=== PATIENT | male | born 1995 | race Caucasian/White ===

== ENCOUNTER 2018-10-28 06:54 | Inpatient (IN) ==
[2018-10-28] MEDS ORDERED: GI COCKTAIL ED USE PO ONE (07:09)
[2018-10-28] MEDS ORDERED: ONDANSETRON INJ 2 MG/ML 2 ML VIAL IV STA (07:09)
[2018-10-28] MEDS ORDERED: KETOROLAC 30 MG/ML VIAL IV STA (07:09)
[2018-10-28] MEDS ORDERED: SODIUM CHLORIDE 0.9% 500 ML IV SCH (07:15)
--- NOTE | 2018-10-28 07:17 | Emergency Department Note ---
Entered by Julia Elkins acting as a scribe for History of Present Illness General Chief complaint: Abdominal Pain Stated complaint: ABD PAIN Time Seen by Provider: 10/28/18 06:59 Source: patient History of Present Illness Onset (ago): day(s) 4 Location: abdomen (epigastric) Radiation: non-radiation (back) Pain Consistency: + constant Maximum Pain Intensity: 4 Quality: + other (knot) Exacerbated By: + movement (stretching) and + other (lying flat) Associated symptoms: + denies other symptoms (vomiting, diarrhea, constipation, or chest pain) and + other (nausea) The patient is a 23 year old male that is presenting to the Emergency Room with complaints of constant epigastric pain that started 4 days ago. The patient reports that he woke up and noted the pain at that time. He describes the pain as knots. He notes some associated nausea. He denies any vomiting, diarrhea, constipation, or chest pain. He states that the pain worsens when he lays in certain positions or when he stretches upward. The patient reports that the pain radiates downward but denies that it radiates to his back. He denies smoking cigarettes or drinking alcohol. He denies any past abdominal surgeries. He notes that he has not had similar episodes in the past. He denies any significant past medical history. 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 and A total of 10 systems reviewed and were otherwise negative Physical Exam Vital Signs Vital Signs - 24 hr 10/28/18 06:58 10/28/18 08:44 Temperature 37.1 C Temperature Source Oral Sepsis Recent Fever Within 48 Hours No Sepsis New/Unexplained Change in Mental Status No Sepsis Action Taken by Nursing No Action Required Pulse Rate 73 Pulse Rate [Finger] 76 Respiratory Rate 18 16 Respiratory Depth Normal Blood Pressure 144/86 H Blood Pressure [Right Arm] 135/70 Blood Pressure Mean 105 Blood Pressure Mean [Right Arm] 91 Pulse Oximetry 99 97 Oxygen Delivery Method Room Air Room Air CONSTITUTIONAL/VITAL SIGNS: Reviewed / noted above. GENERAL: Non-toxic in appearance. INTEGUMENTARY: Warm, dry, and [place]. HEAD: Normocephalic. EYES: without scleral icterus or trauma. ENT/OROPHARYNX: clear and moist. LYMPHADENOPATHY/NECK: Is supple without lymphadenopathy or meningismus. RESPIRATORY: Lungs clear and equal. CARDIOVASCULAR: Regular rate and rhythm. GI/ABDOMEN: Soft. Tenderness in the epigastric area. No organomegaly or pulsatile mass. No rebound or guarding. Normal bowel sounds. EXTREMITIES: Warm and well perfused. BACK: No CVA tenderness. NEUROLOGICAL: Intact without focal deficits. PSYCHIATRIC: normal affect. MUSCULOSKELETAL: Normally developed with good muscle tone. Course 0705:The patient was evaluated in room A03. A complete history and physical examination was performed. 0904: I updated the patient on his current lab and imaging results. 0910: I discussed the patient's case with Dr. Carias, [facility], who will evaluate the patient for further management and care. 0937: Upon reevaluation, the patient is resting comfortably. I discussed laboratory and radiographic results with the patient. He verbalized agreement of the treatment plan. The patient will be evaluated for further management and care. Consultations Consultation #1: I discussed the patient's case with Dr. Carias, [facility], who will evaluate the patient for further management and care. Time: 09:10 Administered Medications Ioversol (Optiray 320 100ml) 95 ml IV ONCE PRN PRN Reason: Interaction Checking Stop: 11/01/18 08:32 Last Admin: 10/28/18 08:33 Dose: 95 ml Documented by: [id number] Discontinued Medications Al Hydrox/Mg Hydrox/Simethicone () 1 dose PO ONE ONE Stop: 10/28/18 07:10 Last Admin: 10/28/18 07:36 Dose: 1 dose Documented by: [id number] Sodium Chloride (Nss) 500 mls @ 999 mls/hr IV .Q31M SHARLA Stop: 10/28/18 07:45 Last Infusion: 10/28/18 08:44 Dose: 0 mls/hr Documented by: [id number] Admin: 10/28/18 07:36 Dose: 999 mls/hr Documented by: [id number] Ketorolac Tromethamine (Toradol) 30 mg IV NOW STA Stop: 10/28/18 07:10 Last Admin: 10/28/18 07:36 Dose: 30 mg Documented by: [id number] Ondansetron HCl (Zofran) 4 mg IV NOW STA Stop: 10/28/18 07:10 Last Admin: 10/28/18 07:36 Dose: 4 mg Documented by: [id number] Medical Decision Making Differential Diagnosis Differential considered: pancreatitis, hepatitis, or acute cholecystitis, AAA, UTI, pyelonephritis, kidney stones, appendicitis, diverticulitis, shingles, bowel obstruction mesenteric ischemia, intussusception,hernia, testicular torsion. Medical Records Attestation: I reviewed the patient's medical records. Home Medications Current Medication List: was personally reviewed by me Laboratory Data Attestation: I reviewed the patient's lab results. Result diagrams: 10/28/18 07:17 10/28/18 07:17 Lab Results 10/28/18 10/28/18 10/28/18 Range/Units 07:17 07:17 07:18 WBC 11.36 H (4.8-10.8) K/uL RBC 5.47 (4.7-6.1) M/uL Hgb 16.6 (14.0-18.0) g/dL Hct 44.3 (42-52) % MCV 81.0 (80-100) fL MCH 30.3 (25-34) pg MCHC 37.5 H (32-36) g/dL RDW Std Deviation 39.0 (36.4-46.3) fL RDW Coeff of [place] 13.1 (11.5-14.5) % Plt Count 172 (130-400) K/uL MPV 12.1 H (7.4-10.4) fL Immature Gran % (Auto) 0.2 % Neut % (Auto) 75.0 % Lymph % (Auto) 16.4 % [place] % (Auto) 7.0 % Eos % (Auto) 1.1 % Baso % (Auto) 0.3 % Immature Gran # (Auto) 0.02 (0.00-0.02) K/uL Neut # (Auto) 8.53 H (1.4-6.5) K/uL Lymph # (Auto) 1.86 (1.2-3.4) K/uL [place] # (Auto) 0.79 H (0.11-0.59) K/uL Eos # (Auto) 0.13 (0-0.5) K/uL Baso # (Auto) 0.03 (0-0.2) K/uL Sodium 137 (136-145) mmol/L Potassium 4.3 (3.5-5.1) mmol/L Chloride 105 (98-107) mmol/L Carbon Dioxide 27 (21-32) mmol/L Anion Gap 5.0 (3-11) BUN 17 (7-18) mg/dl Creatinine 1.29 (0.6-1.4) mg/dl Est Cr Clr Drug Dosing 103.4 ml/min Est GFR ( Amer) 88.7 Est GFR (Non-Af Amer) 76.5 BUN/Creatinine Ratio 13.0 (10-20) Glucose 100 H (70-99) mg/dl Calcium 9.3 (8.5-10.1) mg/dl Total Bilirubin 0.9 (0.2-1) mg/dl AST 20 (15-37) U/L ALT 25 (12-78) U/L Alkaline Phosphatase 107 (45-117) U/L Total Protein 7.5 (6.4-8.2) gm/dl Albumin 4.3 (3.4-5.0) gm/dl Globulin 3.2 (2.5-4.0) gm/dl Albumin/Globulin Ratio 1.4 (0.9-2) Lipase 13476 H (73-393) U/L Urine Color Dark Yellow Urine Appearance Clear (Clear) Urine pH 6.0 (4.5-7.5) Ur Specific [place] 1.036 H (1.000-1.030) Urine Protein 1+ H (Negative) Urine Glucose (UA) Negative (Negative) Urine Ketones 1+ H (Negative) Urine Blood Negative (Negative) Urine Nitrite Negative (Negative) Urine Bilirubin Negative (Negative) Urine Urobilinogen Negative (Negative) Ur Leukocyte Esterase Negative (Negative) Urine RBC 0-4 (0-4) /hpf Urine WBC 0-5 (0-5) /hpf Ur Epithelial Cells 0-5 (0-5) /lpf Urine Bacteria Negative (Negative) Urine Mucus Present A (None Prsent) Imaging Data Radiologist's Impression: Radiology results as stated below per my review and the radiologist's interpretation: ABDOMEN AND PELVIS CT WITH IV CONTRAST CT DOSE: 531.07 mGy.cm HISTORY: epig abd pain TECHNIQUE: Multiaxial CT images of the abdomen and pelvis were performed following the use of intravenous contrast. A dose lowering technique was utilized adhering to the principles of ALARA. COMPARISON STUDY: None. FINDINGS: Trace left pleural fluid. The liver, spleen, gallbladder, kidneys, and adrenal glands are unremarkable. Mild peripancreatic inflammatory change surrounding the pancreatic head. This is consistent with acute pancreatitis. Normal caliber common bile duct. No pancreatic necrosis. No retroperitoneal lymphadenopathy. The main portal vein is patent. No hydronephrosis. No bowel wall thickening or obstruction. No retroperitoneal lymphadenopathy. The bladder is not well-distended but appears unremarkable. No bowel wall thickening or obstruction. Left retroaortic renal vein. No suspicious lytic or blastic osseous lesions. IMPRESSION: Mild peripancreatic inflammatory change surrounding the pancreatic head consistent with acute pancreatitis. Trace left pleural effusion. Electronically signed by: Rudi Pack M.D. 10/28/2018 9:59 AM Blood Pressure Blood Pressure Findings: Elevated blood pressure Blood Pressure Disposition: Referred to patients primary care provider MDM Narrative This is a 23-year-old male who presents to the ED with a chief complaint of epigastric abdominal pain that started on Tuesday, 3 days ago. The patient reports that it feels like a knot in the epigastric area with associated nausea. He denies any radiation into the back but states it radiates down inferiorly a little. He denies any past medical history. Denies drinking alcohol or any past surgical history. His physical exam reveals some tenderness to palpation of the epigastric area. His exam was otherwise unremarkable. The bowel sounds were normal. CBC and chemistry panel was unremarkable. Lipase was 29,474. CT scan reveals mild pancreatitis of the pancreatic head. Patient was given IV fluids, IV Zofran, IV Toradol and a GI cocktail. He was feeling better. Because of his abnormalities, he will be seen by the hospitalist for further inpatient evaluation and care. Impression & Plan Acute pancreatitis Discharge Plan Visit Data Chief Complaint: Abdominal Pain Stated Complaint: ABD PAIN ED Provider: Keo Wilson Discharge Problem: Acute pancreatitis Patient Disposition: Being Evaluated by Hospitalist Discharge Instructions Interventions: ED Discharge Assessment Last Done: 10/28/18 09:58 Discharge Problem: Acute pancreatitis Qualifiers: Pancreatitis type: unspecified pancreatitis type Acute pancreatitis complication: unspecified Qualified Code(s): K85.90 - Acute pancreatitis without necrosis or infection, unspecified The scribe's documentation has been prepared under my direction and personally r eviewed by me in its entirety. I confirm that the note above accurately reflects all work, treatment, procedures, and medical decision making performed by me.
[2018-10-28 07:33] LABS: Basophils # (auto) 0.03 K/uL (0-0.2); Basophils % (auto) 0.3 %; Eosinophils # (auto) 0.13 K/uL (0-0.5); Eosinophils % (auto) 1.1 %; Hematocrit (blood only) 44.3 % (42-52); Hemoglobin 16.6 g/dL (14.0-18.0); Immature Granulocytes # (auto) 0.02 K/uL (0.00-0.02); Immature Granulocytes % (auto) 0.2 %; Lymphocytes # (auto) 1.86 K/uL (1.2-3.4); Lymphocytes % (auto) 16.4 %; Mean Corpuscular Hgb Conc 37.5 g/dL (32-36); Mean Platelet Volume 12.1 fL (7.4-10.4); Monocytes # (auto) 0.79 K/uL (0.11-0.59); Neutrophils # (auto) 8.53 K/uL (1.4-6.5); Platelet Count 172 K/uL (130-400); RDW Coefficient of Variation 13.1 % (11.5-14.5); Red Blood Count 5.47 M/uL (4.7-6.1); White Blood Count 11.36 K/uL (4.8-10.8)
[2018-10-28 07:36] LABS: Appearance Urine Clear (Clear); Blood Urine Negative (Negative); Color Urine Dark Yellow; Glucose Urine UA Negative (Negative); Ketones Urine 1+ (Negative); Leukocyte Esterase Urine Negative (Negative); Nitrite Urine Negative (Negative); Protein Urine 1+ (Negative); Specific Gravity Urine 1.036 (1.000-1.030); Urobilinogen Urine Negative (Negative)
[2018-10-28 07:38] LABS: Bilirubin Urine Negative (Negative); Ictotest Urine Negative (Negative)
[2018-10-28 07:47] LABS: Mucus Urine Present (None Prsent)
[2018-10-28 07:48] LABS: Epithelial Cell Urine 0-5 /lpf (0-5); RBC Urine 0-4 /hpf (0-4); WBC Urine 0-5 /hpf (0-5)
[2018-10-28 07:49] LABS: Bacteria Urine Negative (Negative)
[2018-10-28 08:02] LABS: Albumin Level 4.3 gm/dl (3.4-5.0); Calcium 9.3 mg/dl (8.5-10.1); Creatinine Clr Calc Pharmacy 103.4 ml/min; Est GFR (African American) 88.7; Est GFR (Non-African American) 76.5; Potassium 4.3 mmol/L (3.5-5.1)
[2018-10-28 08:15] LABS: Albumin Globulin Ratio 1.4 (0.9-2); Bilirubin,Total 0.9 mg/dl (0.2-1); Globulin 3.2 gm/dl (2.5-4.0); Total Protein 7.5 gm/dl (6.4-8.2)
[2018-10-28] MEDS ORDERED: IOVERSOL 100ml IV PRN (08:33)
--- NOTE | 2018-10-28 10:00 | CT Scan Report ---
ABDOMEN AND PELVIS CT WITH IV CONTRAST CT DOSE: 531.07 mGy.cm HISTORY: epig abd pain TECHNIQUE: Multiaxial CT images of the abdomen and pelvis were performed following the use of intrave nous contrast. A dose lowering technique was utilized adhering to the principles of ALARA. COMPARISON STUDY: None. FINDINGS: Trace left pleural fluid. The liver, spleen, gallbladder, kidneys, and adrenal glands are u nremarkable. Mild peripancreatic inflammatory change surrounding the pancreatic head. This is consist ent with acute pancreatitis. Normal caliber common bile duct. No pancreatic necrosis. No retroperiton eal lymphadenopathy. The main portal vein is patent. No hydronephrosis. No bowel wall thickening or o bstruction. No retroperitoneal lymphadenopathy. The bladder is not well-distended but appears unremar kable. No bowel wall thickening or obstruction. Left retroaortic renal vein. No suspicious lytic or b lastic osseous lesions. IMPRESSION: Mild peripancreatic inflammatory change surrounding the pancreatic head consistent with acute pancrea titis. Trace left pleural effusion. Electronically signed by: Rudi Pack M.D. 10/28/2018 9:59 AM
[2018-10-28] MEDS ORDERED: HYDROmorphone INJ 1 MG/ML SYRINGE IV PRN (10:09)
[2018-10-28] MEDS ORDERED: ONDANSETRON INJ 2 MG/ML 2 ML VIAL IV PRN (10:09)
[2018-10-28] MEDS: SODIUM CHLORIDE 0.9% 1000ML 1,000 ML IV SCH ×3 (10:30→20:59)
[2018-10-28 10:33] LABS: Chol HDL Ratio 3; Cholesterol 148 mg/dl (0-200); HDL Cholesterol 44 mg/dl; LDL Cholesterol Calculated 81 mg/dl; Triglycerides 113 mg/dl (0-150); VLDL Cholesterol 23 mg/dl
--- NOTE | 2018-10-28 11:17 | Ultrasound Report ---
ABDOMINAL ULTRASOUND, RIGHT UPPER QUADRANT HISTORY: pancreatitis, evaluate GB and CBD and pancreas. COMPARISON: Abdomen and pelvis CT 10/28/2018. FINDINGS: Pancreas: Obscured by overlying bowel gas. Liver: Unremarkable. Gallbladder: No gallbladder wall thickening. No gallstones. CBD: 5 mm. Right kidney: No hydronephrosis. IMPRESSION: 1. Normal gallbladder and common bile duct. No stones identified. 2. The pancreas is obscured by overlying bowel gas. Electronically signed by: Rudi Pack M.D. 10/28/2018 11:15 AM
--- NOTE | 2018-10-28 11:24 | History & Physical Report ---
Date of Service October 28, 2018 Assessment & Plan (1) Acute pancreatitis: diagnosed based on lipase 29k and CT findings of pancreatitis no gall stones on US, LFT normal patient denies alcohol use triglycerides 119 likely idiopathic at this point strict NPO today NSS at 200cc/hr Dilaudid IV for pain control reassess pain and appetite tomorrow likely d/c in 48 hours History of Present Illness Chief Complaint: My abdomen hurts Primary Care Provider: NO PCP 23 yo male with no medical history, presents with 4 days of worsening epigastric pain. He said he has never had pain like this before. The pain was dull at first but has become more sharp, located in epigastric area, does not radiate to the back or anywhere else in the abdomen. Had some nausea but no vomiting. Moved bowels last night, normal caliber. No blood seen in stools. No fever or chills. Nothing has helped the pain. His appetite has been decreased, noticed that eating or drinking makes the pain worse so he has avoided PO intake. In the ED vitals were stable. WBC slightly high at 11k. Lipase markedly elevated at 29k, LFT all normal, Cr normal. CT abdomen/pelvis showed pancreatitis of the head of the pancreas, no other findings. The patient denies regular alcohol use and denies any binge alcohol episodes. He takes no medications. No history of gall stones. His parents have no medical history. His grand mother has heart disease. 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 Beliefs That Will Affect Care: None marital status: Single Current Living Situation: Significant Other current occupational status: unemployed Feels Safe at Home: Yes Safety Concerns: Feels Safe At This Time Smoking Status: Never smoker Hx Alcohol Use: No Hx Substance Use: No Review of Systems Review of Systems: All systems reviewed & are unremarkable except as noted in HPI & below Respiratory: no cough and no dyspnea Cardiovascular: no chest pain Gastrointestinal: + abdominal pain and + nausea; no vomiting, no constipation, no diarrhea/loose stools and no blood in stools Physical Exam Constitutional: WD/WN, vitals as above Eyes: PERRL, conjunctivae normal, anicteric sclerae ENMT: external ear and nose normal, oropharynx normal Neck: trachea midline, no thyromegaly Respiratory: normal respiratory effort, lungs clear to auscultation Cardiovascular: RRR, no murmur, no edema Gastrointestinal (Abdomen): Inspection/Auscultation: abdomen normal to inspection and normal bowel sounds; abdomen not distended Percussion/Palpation: + abdomen tender (epigastric) and abdomen soft; no guarding, abdomen not rigid and no hepatosplenomegaly Musculoskeletal: no cyanosis or clubbing, extremities motor strength 5/5 Skin: no rashes, warm and dry Neurologic: patellar DTR's 2+ bilat, sensation intact and PERRL, EOMI, accommodation nl, no face palsy, no dysarthria Psychiatric: A+Ox3, euthymic affect Lymphatic: no cervical or axillary lymphadenopathy Results & Data Vital Signs (Past 12 Hours) Vital Signs Temp Pulse Pulse Resp BP BP Pulse Ox 10/28/18 10:05 36.6 C 64 18 145/77 H 100 10/28/18 09:47 65 16 137/76 98 10/28/18 08:44 76 16 135/70 97 10/28/18 06:58 37.1 C 73 18 144/86 H 99 Laboratory Results Laboratory Results - last 24 hr 10/28/18 10/28/18 10/28/18 07:17 07:17 07:17 WBC 11.36 H RBC 5.47 Hgb 16.6 Hct 44.3 MCV 81.0 MCH 30.3 MCHC 37.5 H RDW Std Deviation 39.0 RDW Coeff of [place] 13.1 Plt Count 172 MPV 12.1 H Immature Gran % (Auto) 0.2 Neut % (Auto) 75.0 Lymph % (Auto) 16.4 [place] % (Auto) 7.0 Eos % (Auto) 1.1 Baso % (Auto) 0.3 Immature Gran # (Auto) 0.02 Neut # (Auto) 8.53 H Lymph # (Auto) 1.86 [place] # (Auto) 0.79 H Eos # (Auto) 0.13 Baso # (Auto) 0.03 Sodium 137 Potassium 4.3 Chloride 105 Carbon Dioxide 27 Anion Gap 5.0 BUN 17 Creatinine 1.29 Est Cr Clr Drug Dosing 103.4 Est GFR ( Amer) 88.7 Est GFR (Non-Af Amer) 76.5 BUN/Creatinine Ratio 13.0 Glucose 100 H Calcium 9.3 Total Bilirubin 0.9 AST 20 ALT 25 Alkaline Phosphatase 107 Total Protein 7.5 Albumin 4.3 Globulin 3.2 Albumin/Globulin Ratio 1.4 Triglycerides 113 Cholesterol 148 LDL Cholesterol, Calc 81 VLDL Cholesterol, Calc 23 HDL Cholesterol 44 Cholesterol/HDL Ratio 3 Lipase 17624 H Urine Color Urine Appearance Urine pH Ur Specific [place] Urine Protein Urine Glucose (UA) Urine Ketones Urine Blood Urine Nitrite Urine Bilirubin Urine Urobilinogen Ur Leukocyte Esterase Urine RBC Urine WBC Ur Epithelial Cells Urine Bacteria Urine Mucus 10/28/18 07:18 WBC RBC Hgb Hct MCV MCH MCHC RDW Std Deviation RDW Coeff of [place] Plt Count MPV Immature Gran % (Auto) Neut % (Auto) Lymph % (Auto) [place] % (Auto) Eos % (Auto) Baso % (Auto) Immature Gran # (Auto) Neut # (Auto) Lymph # (Auto) [place] # (Auto) Eos # (Auto) Baso # (Auto) Sodium Potassium Chloride Carbon Dioxide Anion Gap BUN Creatinine Est Cr Clr Drug Dosing Est GFR ( Amer) Est GFR (Non-Af Amer) BUN/Creatinine Ratio Glucose Calcium Total Bilirubin AST ALT Alkaline Phosphatase Total Protein Albumin Globulin Albumin/Globulin Ratio Triglycerides Cholesterol LDL Cholesterol, Calc VLDL Cholesterol, Calc HDL Cholesterol Cholesterol/HDL Ratio Lipase Urine Color Dark Yellow Urine Appearance Clear Urine pH 6.0 Ur Specific [place] 1.036 H Urine Protein 1+ H Urine Glucose (UA) Negative Urine Ketones 1+ H Urine Blood Negative Urine Nitrite Negative Urine Bilirubin Negative Urine Urobilinogen Negative Ur Leukocyte Esterase Negative Urine RBC 0-4 Urine WBC 0-5 Ur Epithelial Cells 0-5 Urine Bacteria Negative Urine Mucus Present A Diagnostic Findings ABDOMINAL ULTRASOUND, RIGHT UPPER QUADRANT IMPRESSION: 1. Normal gallbladder and common bile duct. No stones identified. 2. The pancreas is obscured by overlying bowel gas. CT ABDOMEN/PELVIS IMPRESSION: Mild peripancreatic inflammatory change surrounding the pancreatic head consistent with acute pancreatitis. Trace left pleural effusion. Code Status & VTE Plan Code Status FULL CODE VTE Prophylaxis Plan VTE Prophylaxis will be ordered: No Reason for no VTE drug order: Treatment not indicated Reason for no VTE mechanical prophylaxis: Refusal of treatmnt by pt (1) Acute pancreatitis Acute pancreatitis complication: unspecified Pancreatitis type: unspecified pancreatitis type Qualified Code(s): K85.90 - Acute pancreatitis without necrosis or infection, unspecified
[2018-10-28] MEDS ORDERED: Nursing to Pharmacy Communication ONE (17:53)
[2018-10-29] MEDS: SODIUM CHLORIDE 0.9% 1000ML 1,000 ML IV SCH ×4 (01:55→20:13)
[2018-10-29 06:58] LABS: Basophils # (auto) 0.03 K/uL (0-0.2); Basophils % (auto) 0.4 %; Eosinophils # (auto) 0.11 K/uL (0-0.5); Eosinophils % (auto) 1.3 %; Hematocrit (blood only) 42.1 % (42-52); Hemoglobin 14.9 g/dL (14.0-18.0); Immature Granulocytes # (auto) 0.01 K/uL (0.00-0.02); Immature Granulocytes % (auto) 0.1 %; Lymphocytes % (auto) 22.2 %; Mean Corpuscular Hgb Conc 35.4 g/dL (32-36); Mean Corpuscular Volume 82.7 fL (80-100); Mean Platelet Volume 12.5 fL (7.4-10.4); Monocytes # (auto) 0.71 K/uL (0.11-0.59); Monocytes % (auto) 8.3 %; Neutrophils % (auto) 67.7 %; Platelet Count 142 K/uL (130-400); RDW Standard Deviation 39.6 fL (36.4-46.3); Red Blood Count 5.09 M/uL (4.7-6.1); White Blood Count 8.56 K/uL (4.8-10.8)
[2018-10-29 07:30] LABS: Albumin Level 3.5 gm/dl (3.4-5.0); BUN Creatinine Ratio 12.6 (10-20); Calcium 8.5 mg/dl (8.5-10.1); Creatinine Clr Calc Pharmacy 124.6 ml/min; Est GFR (African American) 111.2
[2018-10-29 07:33] LABS: Albumin Globulin Ratio 1.2 (0.9-2); Bilirubin,Total 1.2 mg/dl (0.2-1); Total Protein 6.5 gm/dl (6.4-8.2)
--- NOTE | 2018-10-29 13:24 | Hospitalist Progress Note ---
Date of Service October 29, 2018 Assessment & Plan (1) Acute pancreatitis: diagnosed based on lipase 29k and CT findings of pancreatitis no gall stones on US, LFT normal patient denies alcohol use triglycerides 119 would consider this to be idiopathic markedly improved on 10/29, minimal pain, patient now with appetite will start full liquids for lunch, if tolerates then low residue diet at dinner decrease fluids to 100cc/hr lipase down to 2000 repeat labs in AM if tolerating diet and minimal pain then d/c to home follow up with PCP Subjective patient feeling a lot better, pain nearly gone he is hungry this morning no nausea, no fever, no dyspnea reviewed labs, lipase down to 2000, LFT normal will decrease fluids, start diet told patient he can likely go home tomorrow Review of Systems Review of Systems: All systems reviewed & are unremarkable except as noted in HPI & below Gastrointestinal: + abdominal pain (mild, not as bad as yesterday); no nausea, no vomiting, no constipation and no diarrhea/loose stools Physical Exam Constitutional: WD/WN, vitals as above Eyes: PERRL, conjunctivae normal, anicteric sclerae ENMT: external ear and nose normal, oropharynx normal Neck: trachea midline, no thyromegaly Respiratory: normal respiratory effort, lungs clear to auscultation Cardiovascular: RRR, no murmur, no edema Gastrointestinal (Abdomen): Inspection/Auscultation: abdomen normal to inspection and normal bowel sounds; abdomen not distended Percussion/Palpation: + abdomen tender (epigastric, minimal tenderness) and abdomen soft; no guarding, abdomen not rigid and no hepatosplenomegaly Musculoskeletal: no cyanosis or clubbing, extremities motor strength 5/5 Skin: no rashes, warm and dry Neurologic: patellar DTR's 2+ bilat, sensation intact and PERRL, EOMI, accommodation nl, no face palsy, no dysarthria Psychiatric: A+Ox3, euthymic affect Lymphatic: no cervical or axillary lymphadenopathy Results & Data Vital Signs (Past 12 Hours) Vital Signs Temp Pulse Resp BP Pulse Ox 10/29/18 07:00 36.9 C 76 18 120/72 98 Laboratory Results Laboratory Results - last 24 hr 10/29/18 10/29/18 06:36 06:36 WBC 8.56 RBC 5.09 Hgb 14.9 Hct 42.1 MCV 82.7 MCH 29.3 MCHC 35.4 RDW Std Deviation 39.6 RDW Coeff of [place] 13.0 Plt Count 142 MPV 12.5 H Immature Gran % (Auto) 0.1 Neut % (Auto) 67.7 Lymph % (Auto) 22.2 [place] % (Auto) 8.3 Eos % (Auto) 1.3 Baso % (Auto) 0.4 Immature Gran # (Auto) 0.01 Neut # (Auto) 5.80 Lymph # (Auto) 1.90 [place] # (Auto) 0.71 H Eos # (Auto) 0.11 Baso # (Auto) 0.03 Sodium 141 Potassium 4.0 Chloride 111 H Carbon Dioxide 25 Anion Gap 6.0 BUN 14 Creatinine 1.07 Est Cr Clr Drug Dosing 124.6 Est GFR ( Amer) 111.2 Est GFR (Non-Af Amer) 96.0 BUN/Creatinine Ratio 12.6 Glucose 74 Calcium 8.5 Total Bilirubin 1.2 H AST 17 ALT 20 Alkaline Phosphatase 89 Total Protein 6.5 Albumin 3.5 Globulin 3.0 Albumin/Globulin Ratio 1.2 Lipase 2375 H Medications Administered Current Inpatient Medications Hydromorphone HCl (Dilaudid) 1 mg IV Q4H PRN PRN Reason: Pain Stop: 11/11/18 10:08 Last Admin: 10/28/18 16:01 Dose: 1 mg Documented by: Sodium Chloride (Nss 1000ml) 1,000 mls @ 100 mls/hr IV .Q10H SHARLA Stop: 11/27/18 20:59 Last Admin: 10/29/18 11:40 Dose: 100 mls/hr Documented by: Ioversol (Optiray 320 100ml) 95 ml IV ONCE PRN PRN Reason: Interaction Checking Stop: 11/01/18 08:32 Last Admin: 10/28/18 08:33 Dose: 95 ml Documented by: Ondansetron HCl (Zofran) 4 mg IV Q6H PRN PRN Reason: Nausea Stop: 11/27/18 10:08 (1) Acute pancreatitis Acute pancreatitis complication: unspecified Pancreatitis type: unspecified pancreatitis type Qualified Code(s): K85.90 - Acute pancreatitis without necrosis or infection, unspecified
[2018-10-30] MEDS: SODIUM CHLORIDE 0.9% 1000ML 1,000 ML IV SCH (05:02)
--- NOTE | 2018-10-30 12:22 | Discharge Summary ---
Date of Service October 30, 2018 Admission HPI Per Admitting Provider 23 yo male with no medical history, presents with 4 days of worsening epigastric pain. He said he has never had pain like this before. The pain was dull at first but has become more sharp, located in epigastric area, does not radiate to the back or anywhere else in the abdomen. Had some nausea but no vomiting. Moved bowels last night, normal caliber. No blood seen in stools. No fever or chills. Nothing has helped the pain. His appetite has been decreased, noticed that eating or drinking makes the pain worse so he has avoided PO intake. In the ED vitals were stable. WBC slightly high at 11k. Lipase markedly elevated at 29k, LFT all normal, Cr normal. CT abdomen/pelvis showed pancreatitis of the head of the pancreas, no other findings. The patient denies regular alcohol use and denies any binge alcohol episodes. He takes no medications. No history of gall stones. His parents have no medical history. His grand mother has heart disease. 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 Principal Diagnosis Acute pancreatitis Discharge Exam Constitutional WD/WN, vitals as above Eyes PERRL, conjunctivae normal, anicteric sclerae ENMT external ear and nose normal, oropharynx normal Neck trachea midline, no thyromegaly Respiratory normal respiratory effort, lungs clear to auscultation Cardiovascular RRR, no murmur, no edema Gastrointestinal (Abdomen) normal bowel sounds, soft, nontender, no hepatosplenomegaly Musculoskeletal Extremities: extremities normal to inspection; no cyanosis and no clubbing Skin no rashes, warm and dry Neurologic moves all extremities and awake; no focal motor deficits Psychiatric A+Ox3, euthymic affect Discharge Data Allergies Allergy/AdvReac Type Severity Reaction Status Date / Time EYZOLE Allergy Intermediate HIVES Uncoded 04/21/09 05:08 Consultations None Ordered Studies 10/28/18 07:09 CT abd pelvis IV con only Stat 10/28/18 10:09 US abdomen limited Stat Hospital Course (1) Acute pancreatitis: diagnosed based on lipase 29k and CT findings of pancreatitis. Lipase down to 2000 by the next day no gall stones on US, LFT normal patient denies alcohol use triglycerides 119 would consider this to be idiopathic It is possible he could have pancreas divisum not well visualized on CT, consider MRI pancreas as outpt if has recurrence. Could be autoimmune. No workup for this initiated at this time but would if has recurrence Markedly improved on day of discharge, tolerating low fat diet, has no pain. Treated with IVFs and pain meds Stable for discharge. Strongly encouraged f/u and to get established with a PCP Total Time Total Time Spent Total Time Spent (In Minutes): >30 min Total Time Includes: Examination of the Patient, Discharge Planning and Medication Reconciliation Discharge Plan Discharge Items Patient Disposition: Home - Self-Care Reason For Visit: acute pancreatitis Discharge Diagnosis: Acute pancreatitis Condition: Good Discharge Goals: Decrease discomfort, Diagnostic testing, Improve disease control, Learn about illness and Therapeutic intervention Activity: Resume your previous activity Lifting: Gradually increase as tolerated Bathing: No limitations Exercise/Sports: Gradually increase as tolerated Driving/Machine Use: No limitations Non-emergency contact: Primary Care Provider Call non-emergency contact if: you have any medication questions, your symptoms worsen, your pain is not controlled, your pain is worsening, your pain is unusual for you, your pain is concerning for you and your temperature is above 100.5 Follow-up/Referrals: PCP,NO [Primary Care Provider] - Diet: Low Fat Addtl Provider Instructions: You were admitted with acute pancreatitis which is inflammation of the pancreas. It is unclear what the cause of your pancreatitis is but it is important to follow a low fat diet and avoid alcohol use. Please follow up with a primary care physician within 1-2 weeks. If you have return of your abdominal pain, please return to the hospital. Prescriptions: No Action No Known Home Medications RF: 0 Stand-Alone Forms: [facility], Later [facility], Work/School Release (Inpt) Discharge Orders: Discharge Order (Routine); Ordered 10/30/18 Ordered By: Jacqueline Henao Admission Data Admit Date/Time: 10/28/18 09:32 Attending Provider: Jacqueline Henao Admit Provider: Johann Carias Primary Care Provider: PCP,NO Other Providers: Johann Carias Service: Medical Other Pending Studies at Discharge: No
== END 2018-10-30 12:35 | disposition home or self-care (01) | DRG 440 ==
LOC: ED 06:54 → 4W 09:32 → SUATTDRO 09:32 → 4W 09:58
DX: K85.90 Acute pancreatitis without necrosis or infection, unspecified

== ENCOUNTER 2023-04-20 18:14 | Observation (INO) ==
--- NOTE | 2023-04-20 18:34 | ED Triage Note ---
Date of Service April 20, 2023 History of Present Illness This patient was briefly evaluated while in triage. An abbreviated physical exam was performed. This patient is a 27-year-old Male who presents to the ED for evaluation of anorexia, pain after eating, upper abdominal pain x 6 days hx of pancreatitis and feels the same diarrhea Physical Exam GENERAL: NAD CARDIOVASCULAR: RRR RESPIRATORY: CTA ABDOMEN: BS x 4. TTP in mid upper abdomen. Initial orders for labs and / or imaging were placed and patient was placed in the waiting area until a bed is available. Please see further documentation for the full ED course. MDM / Impression Impression Impression: Pancreatitis Impression: Pancreatitis Qualifiers: Chronicity: acute Pancreatitis type: unspecified pancreatitis type Acute pancreatitis complication: unspecified Qualified Code(s): K85.90 - Acute pancreatitis without necrosis or infection, unspecified
[2023-04-20] MEDS ORDERED: SODIUM CHLORIDE 0.9% 1,000 ML IV SCH ×2 (18:36→22:15)
[2023-04-20 19:20] LABS: Basophils # (auto) 0.06 K/uL (0.00-0.20); Basophils % (auto) 0.5 %; Eosinophils # (auto) 0.22 K/uL (0.00-0.50); Eosinophils % (auto) 1.8 %; Hemoglobin 14.9 g/dl (14.0-18.0); Immature Granulocytes # (auto) 0.07 K/uL (0.01-0.20); Immature Granulocytes % (auto) 0.6 %; Lymphocytes # (auto) 2.16 K/uL (1.20-3.40); Lymphocytes % (auto) 17.9 %; Mean Corpuscular Hemoglobin 28.9 pg (25.0-34.0); Mean Corpuscular Hgb Conc 36.3 g/dL (32.0-36.0); Mean Corpuscular Volume 79.6 fL (80.0-100.0); Mean Platelet Volume 11.8 fL (9.4-12.4); Monocytes # (auto) 0.81 K/uL (0.11-0.59); Monocytes % (auto) 6.7 %; Neutrophils # (auto) 8.77 K/uL (1.40-6.50); Neutrophils % (auto) 72.5 %; Platelet Count 257 K/uL (130-400); RDW Coefficient of Variation 12.9 % (11.5-14.5); RDW Standard Deviation 36.6 fL (36.4-46.3); Red Blood Count 5.15 M/uL (4.70-6.10); White Blood Count 12.09 K/ul (4.8-10.8)
[2023-04-20 19:30] LABS: BUN Creatinine Ratio 13.2 (10-20); Calcium 9.5 mg/dl (8.6-10.3); Creatinine Clr Calc Pharmacy 112.1 ml/min; Est GFR (African American) 93.2 ml/min; Est GFR (Non-African American) 80.4 ml/min
[2023-04-20 20:24] LABS: Albumin Globulin Ratio 1.5 (0.9-2); Albumin Level 4.4 gm/dl (3.4-5.0); Bilirubin,Total 0.8 mg/dl (0.2-1.0); Globulin 2.9 gm/dl (2.5-4.0); Total Protein 7.3 gm/dl (6.0-8.3)
[2023-04-20 20:57] LABS: Appearance Urine Cloudy (Clear); Bacteria Urine Automated Negative (Negative); Blood Urine Negative (Negative); Color Urine Dark Yellow; Epithelial Cell Urine Auto >30 /lpf (0-5); Glucose Urine UA Negative (Negative); Ketones Urine Trace (Negative); Leukocyte Esterase Urine Negative (Negative); Nitrite Urine Negative (Negative); Protein Urine 2+ (Negative); RBC Urine Automated 0-4 /hpf (0-4); Specific Gravity Urine 1.035 (1.000-1.030); Urobilinogen Urine Negative (Negative)
[2023-04-20] MEDS ORDERED: OPTIRAY 320 100ml IV ONE (21:00)
[2023-04-20 21:01] LABS: Bilirubin Urine 1+ (Negative)
[2023-04-20] MEDS ORDERED: ONDANSETRON INJ 2 MG/ML 2 ML VIAL IV STA (22:01)
[2023-04-20] MEDS ORDERED: MoRPHine SULFATE 4 MG/ML 1 ML CARP\\VIAL IV STA (22:01)
--- NOTE | 2023-04-20 22:01 | CT Scan Report ---
Exam(s): CT ABDOMEN + PELVIS With Contrast IV Amt: 89 ml optiray 320 EXAM: CT Abdomen and Pelvis With Intravenous Contrast CLINICAL HISTORY: Reason for exam: mid/upper abd pain , hx of pancreatitis. TECHNIQUE: Axial computed tomography images of the abdomen and pelvis with intravenous contrast. CTDI is 27.1 mGy and DLP is 1403.68 mGy-cm. Automated exposure control was utilized for the study. A dose lowering technique was utilized adhering to the principles of ALARA. CONTRAST: Patient received 89 ml optiray 320 of IV contrast COMPARISON: No relevant prior studies available. FINDINGS: Lung bases: Unremarkable. No mass. No consolidation. ABDOMEN: Liver: Unremarkable. No mass. Gallbladder and bile ducts: Unremarkable. No calcified stones. No ductal dilation. Pancreas: Trace fat stranding about the pancreatic head, correlate for minimal pancreatitis. No ductal dilation. Spleen: Unremarkable. No splenomegaly. Adrenals: Unremarkable. No mass. Kidneys and ureters: Retroaortic LEFT renal vein. No hydronephrosis. Stomach and bowel: Unremarkable. No obstruction. No mucosal thickening. PELVIS: Appendix: Normal appendix. Bladder: Unremarkable. No mass. Reproductive: Unremarkable as visualized. ABDOMEN and PELVIS: Intraperitoneal space: Unremarkable. No free air. No significant fluid collection. Bones/joints: No acute fracture. No dislocation. Soft tissues: Unremarkable. Vasculature: See above. Lymph nodes: Mild increased number of mesenteric lymph nodes, which are not pathologically enlarged. IMPRESSION: 1. Normal appendix. 2. Mild increased number of mesenteric lymph nodes, which are not pathologically enlarged. 3. Trace fat stranding about the pancreatic head, correlate for minimal pancreatitis. Electronically signed by: Kendall Bowen MD 04/20/23 22:00 PM
[2023-04-20] MEDS ORDERED: MoRPHine SULFATE 4 MG/ML 1 ML CARP\\VIAL IV PRN (22:48)
--- NOTE | 2023-04-20 22:51 | History & Physical Report ---
Date of Service April 20, 2023 Assessment & Plan (1) History of pancreatitis: (2) Pancreatitis: (3) Elevated lipase: Plan Pancreatitis- Patient reports symptoms similar to his first episode of pancreatitis for which he was hospitalized from 10/28-10/30/2018 Lipase level 4208, and repeat in a.m. along with BMP Leukocytosis with WBC 12.09, and repeat in a.m. CT scan of the abdomen and pelvis shows findings for minimal pancreatitis about the pancreatic head Patient reports discomfort in the epigastric area with swallowing water or foods He does have persistent pain after eating for the past 6 days, and has led to decreased oral intake Patient has received 1 L normal saline from the ED We will give 2 additional liters normal saline bolus, reaching 30 mils per kilogram Maintenance fluids of normal saline plus KCl 20 mill equivalents at 125 MLS per hour for 1 additional liter Zofran 4 mg IV every 6 hours as needed Morphine sulfate 4 mg IV every 3 hours as needed for moderate to severe pain Patient will discuss with his girlfriend any potential foods that may have precipitated the symptoms This is a second episode of pancreatitis now in the past 4 years. Patient denies alcohol intake No suggestion of gallstones Could consider MRCP if symptoms are slow to improve With symptoms of epigastric discomfort with water intake and after eating, there may also be an issue with bile acid reflux. Patient will be placed on pantoprazole 40 mg IV now and then every morning He could possibly benefit from bile acid binding resin such as cholestyramine History of Present Illness Chief Complaint: The patient presents to the emergency department with complaint of generalized abdominal pain, decreased appetite, and reports he has epigastric discomfort that occurs even with swallowing water Primary Care Provider: NO PCP The patient is a 27-year-old male with a past medical history of pancreatitis requiring hospitalization from 10/28-10/30/2018. He presents to the emergency department with 3 days of diarrhea, and then abdominal pain with decreased oral intake to liquids and solids, reminiscent of his first episode of pancreatitis. He reports that his girlfriend had the same 3 days of diarrhea. He cannot at this moment determine if there has been any questionable food intake, but he will discuss with his girlfriend. He reports that even with swallowing water he gets abdominal discomfort. Allergies Allergy/AdvReac Type Severity Reaction Status Date / Time EYZOLE Allergy Intermediate HIVES--PT Uncoded 04/20/23 21:26 UNSURE OF SPELLING, HAPPENED A CHILD. Home Medications Medication Instructions Recorded Confirmed Type No Known Home Medications 10/28/18 04/20/23 History Past Med/Surg History Medical History (Updated 04/21/23 @ 02:23 by Gordon Muhammad MD) History of pancreatitis No pertinent family history Acute pancreatitis Surgical History No pertinent past surgical history Family History Grandmother Heart disease Other No significant family history Social History Smoking Status: Never smoker Hx Alcohol Use: No Hx Substance Use: No Preferred Language: Yi Communication Ability: Effective Services Program Manager Required: No Beliefs That Will Affect Care: None marital status: Single Current Living Situation: Spouse current occupational status: unemployed Feels Safe at Home: Yes Assistive Devices: None Review of Systems Review of Systems: The patient denies chest pain, palpitations, shortness of breath, dyspnea on exertion, cough, lower extremity swelling, sore throat, fevers, chills, sweats, weight change, fatigue, blood in urine or stool, dysuria, urinary frequency or urgency, lightheadedness, dizziness, headache, memory loss, loss of consciousness, rash, abnormal bruising or bleeding, imbalance, focal weakness, numbness or tingling in arms or legs, generalized arthralgias or myalgias, back or neck pain, or night sweats. The review of systems is otherwise negative other than for that already noted above, and at least 10 systems have been reviewed. Physical Exam Physical Exam: The patient is awake, alert and oriented 3, well developed and well nourished, normocephalic and atraumatic, lying in bed and in no acute distress. HEENT--PERRL, EOMI, mucous membranes and oropharynx mildly dry. Neck--supple. No JVD. No bruits. Thyroid normal, trachea midline, no adenopathy. Heart--normal S1 and S2. No murmurs, rubs or gallops. Lungs--clear bilaterally, no respiratory distress, no accessory muscle use. Abdomen--normal bowel sounds and soft. Mild epigastric and generalized abdominal discomfort Extremities--no cyanosis or clubbing. No edema. Dermatologic--normal skin turgor, normal color, no abnormal lymph nodes, no rash. Neurologic--cranial nerves II through XII grossly intact. Rheumatologic--normal range of motion. Psychiatric--normal affect. Results & Data Results & Data Vital Signs (Past 12 Hours) Vital Signs Temp Pulse Pulse Resp BP BP Pulse Ox 04/20/23 21:30 61 19 131/81 99 04/20/23 20:38 65 04/20/23 20:30 65 17 113/76 99 04/20/23 20:15 63 18 100 04/20/23 20:15 65 18 127/76 99 04/20/23 18:33 36.6 C 74 20 127/77 100 O2 Del Method O2 Flow Rate 04/20/23 21:30 04/20/23 20:38 04/20/23 20:30 04/20/23 20:15 Room Air 0 04/20/23 20:15 Room Air 04/20/23 18:33 Room Air Laboratory Results Laboratory Results WBC 12.09 K/ul (4.8-10.8) H 04/20/23 18:58 RBC 5.15 M/uL (4.70-6.10) 04/20/23 18:58 Hgb 14.9 g/dl (14.0-18.0) 04/20/23 18:58 Hct 41.0 % (42.0-52.0) L 04/20/23 18:58 MCV 79.6 fL (80.0-100.0) L 04/20/23 18:58 MCH 28.9 pg (25.0-34.0) 04/20/23 18:58 MCHC 36.3 g/dL (32.0-36.0) H 04/20/23 18:58 RDW Std Deviation 36.6 fL (36.4-46.3) 04/20/23 18:58 RDW Coeff of [place]ira 12.9 % (11.5-14.5) 04/20/23 18:58 Plt Count 257 K/uL (130-400) 04/20/23 18:58 MPV 11.8 fL (9.4-12.4) 04/20/23 18:58 Immature Gran % (Auto) 0.6 % 04/20/23 18:58 Neut % (Auto) 72.5 % 04/20/23 18:58 Lymph % (Auto) 17.9 % 04/20/23 18:58 [place] % (Auto) 6.7 % 04/20/23 18:58 Eos % (Auto) 1.8 % 04/20/23 18:58 Baso % (Auto) 0.5 % 04/20/23 18:58 Neut # (Auto) 8.77 K/uL (1.40-6.50) H 04/20/23 18:58 Lymph # (Auto) 2.16 K/uL (1.20-3.40) 04/20/23 18:58 [place] # (Auto) 0.81 K/uL (0.11-0.59) H 04/20/23 18:58 Eos # (Auto) 0.22 K/uL (0.00-0.50) 04/20/23 18:58 Baso # (Auto) 0.06 K/uL (0.00-0.20) 04/20/23 18:58 Immature Gran # (Auto) 0.07 K/uL (0.01-0.20) 04/20/23 18:58 Sodium 139 mmol/L (136-145) 04/20/23 18:58 Potassium 4.0 mmol/L (3.5-5.1) 04/20/23 18:58 Chloride 106 mmol/L (98-107) 04/20/23 18:58 Carbon Dioxide 25 mmol/L (21-32) 04/20/23 18:58 Anion Gap 8 (3-11) 04/20/23 18:58 BUN 16 mg/dl (6-23) 04/20/23 18:58 Creatinine 1.21 mg/dl (0.6-1.4) 04/20/23 18:58 Est Cr Clr Drug Dosing 112.1 ml/min 04/20/23 18:58 Est GFR ( Amer) 93.2 ml/min 04/20/23 18:58 Est GFR (Non-Af Amer) 80.4 ml/min 04/20/23 18:58 BUN/Creatinine Ratio 13.2 (10-20) 04/20/23 18:58 Glucose 106 mg/dl (70-99(Fasting)) H 04/20/23 18:58 Calcium 9.5 mg/dl (8.6-10.3) 04/20/23 18:58 Total Bilirubin 0.8 mg/dl (0.2-1.0) 04/20/23 18:58 AST 19 U/L (13-39) 04/20/23 18:58 ALT 19 U/L (7-52) 04/20/23 18:58 Alkaline Phosphatase 78 U/L (34-104) 04/20/23 18:58 Total Protein 7.3 gm/dl (6.0-8.3) 04/20/23 18:58 Albumin 4.4 gm/dl (3.4-5.0) 04/20/23 18:58 Globulin 2.9 gm/dl (2.5-4.0) 04/20/23 18:58 Albumin/Globulin Ratio 1.5 (0.9-2) 04/20/23 18:58 Lipase 4208 U/L (11-82) H 04/20/23 18:58 Urine Color Dark Yellow 04/20/23 20:30 Urine Appearance Cloudy (Clear) A 04/20/23 20:30 Urine pH 6.0 (4.5-7.5) 04/20/23 20:30 Ur Specific [place] 1.035 (1.000-1.030) H 04/20/23 20:30 Urine Protein 2+ (Negative) H 04/20/23 20:30 Urine Glucose (UA) Negative (Negative) 04/20/23 20:30 Urine Ketones Trace (Negative) H 04/20/23 20:30 Urine Blood Negative (Negative) 04/20/23 20:30 Urine Nitrite Negative (Negative) 04/20/23 20:30 Urine Bilirubin 1+ (Negative) H 04/20/23 20:30 Urine Urobilinogen Negative (Negative) 04/20/23 20:30 Ur Leukocyte Esterase Negative (Negative) 04/20/23 20:30 Urine WBC (Auto) 5-10 /hpf (0-5) H 04/20/23 20:30 Urine RBC (Auto) 0-4 /hpf (0-4) 04/20/23 20:30 U Hyaline Cast (Auto) 5-10 /lpf (0-5) H 04/20/23 20:30 U Epithel Cells (Auto) >30 /lpf (0-5) H 04/20/23 20:30 Urine Bacteria (Auto) Negative (Negative) 04/20/23 20:30 Ur Renal Epithelial Cell Not Reportable 04/20/23 20:30 Granular Casts 1-5 /lpf (0) H 04/20/23 20:30 Impressions Abdomen/Pelvis CT 04/20/23 18:35 Exam(s): CT ABDOMEN + PELVIS With Contrast IV Amt: 89 ml optiray 320 EXAM: CT Abdomen and Pelvis With Intravenous Contrast CLINICAL HISTORY: Reason for exam: mid/upper abd pain , hx of pancreatitis. TECHNIQUE: Axial computed tomography images of the abdomen and pelvis with intravenous contrast. CTDI is 27.1 mGy and DLP is 1403.68 mGy-cm. Automated exposure control was utilized for the study. A dose lowering technique was utilized adhering to the principles of ALARA. CONTRAST: Patient received 89 ml optiray 320 of IV contrast COMPARISON: No relevant prior studies available. FINDINGS: Lung bases: Unremarkable. No mass. No consolidation. ABDOMEN: Liver: Unremarkable. No mass. Gallbladder and bile ducts: Unremarkable. No calcified stones. No ductal dilation. Pancreas: Trace fat stranding about the pancreatic head, correlate for minimal pancreatitis. No ductal dilation. Spleen: Unremarkable. No splenomegaly. Adrenals: Unremarkable. No mass. Kidneys and ureters: Retroaortic LEFT renal vein. No hydronephrosis. Stomach and bowel: Unremarkable. No obstruction. No mucosal thickening. PELVIS: Appendix: Normal appendix. Bladder: Unremarkable. No mass. Reproductive: Unremarkable as visualized. ABDOMEN and PELVIS: Intraperitoneal space: Unremarkable. No free air. No significant fluid collection. Bones/joints: No acute fracture. No dislocation. Soft tissues: Unremarkable. Vasculature: See above. Lymph nodes: Mild increased number of mesenteric lymph nodes, which are not pathologically enlarged. IMPRESSION: 1. Normal appendix. 2. Mild increased number of mesenteric lymph nodes, which are not pathologically enlarged. 3. Trace fat stranding about the pancreatic head, correlate for minimal pancreatitis. Electronically signed by: Kendall Bowen MD 04/20/23 22:00 PM Code Status & VTE Plan Code Status Full code VTE Prophylaxis Plan VTE Prophylaxis will be ordered: Yes PG Care Time/CCT Total # of Minutes Spent Total Time Spent with Patient: Total time spent is greater than 50% in coordination of care (as documented) at patient's floor/unit and/or counseling patient: Coding Level of Care Code 72917 INT INP/OBS CARE MIN Diagnoses History of pancreatitis Z87.19 Pancreatitis K85.90 Acute pancreatitis complication: unspecified Chronicity: acute Pancreatitis type: unspecified pancreatitis type Elevated lipase R74.8 (2) Pancreatitis Acute pancreatitis complication: unspecified Chronicity: acute Pancreatitis type: unspecified pancreatitis type Qualified Code(s): K85.90 - Acute pancreatitis without necrosis or infection, unspecified
[2023-04-20] MEDS ORDERED: PANTOprazole 40 MG in SYRINGE 0 ML IV ONE (23:15)
--- NOTE | 2023-04-20 23:18 | Emergency Department Note ---
History of Present Illness General Chief Complaint: Abdominal Pain Stated Complaint: PANCREATITUS, ABDOMINAL PAIN, NO APPETITE Time Seen by Provider: 04/20/23 20:05 History of Present Illness Provider Complaint: abdominal pain Onset (ago): 1 day(s) Pain Consistency: intermittent Location: epigastric Radiation: back Severity: similar to previous episodes (Feels like previous episodes of pancreatitis) Maximum Pain Intensity: 8 Current Pain Intensity: 3 Quality: + cramping, + stabbing, + aching, + fullness and + sharp Relieved By: + nothing Exacerbated By: + eating Context: no foreign travel, no possible food poisoning, no sick contacts, no recent antibiotic use, no recent surgery/procedure or no recent injury Associated Symptoms: + nausea and + vomiting; no diarrhea, no fever, no chills, no constipation, no dysuria, no hematemesis, no hematochezia, no melena, no hematuria, no syncope, no headache, no neck pain and no chest pain Home Medications Medication Instructions Recorded Confirmed Type No Known Home Medications 10/28/18 04/20/23 History Allergies Allergy/AdvReac Type Severity Reaction Status Date / Time EYZOLE Allergy Intermediate HIVES--PT Uncoded 04/20/23 21:26 UNSURE OF SPELLING, HAPPENED A CHILD. 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 Beliefs That Will Affect Care: None marital status: Single Current Living Situation: Significant Other current occupational status: unemployed Feels Safe at Home: Yes Assistive Devices: None Physical Exam 2 Vital Signs: Vital Signs - 24 hr 04/20/23 18:33 04/20/23 20:15 04/20/23 20:15 Temperature 36.6 C Temperature Source Temporal Artery Sc an Pulse Rate 74 63 Pulse Rate [Apical ] 65 Pulse Rhythm Regular Pulse Rhythm [Apic al] Regular Pulse Strength [Ap ical] Normal Respiratory Rate 20 18 18 Respiratory Effort / Characteristics Non-Labored Non-Labored Respiratory Depth Normal Normal Blood Pressure 127/77 Blood Pressure [Le ft Arm] 127/76 Blood Pressure Shadia n 93 Blood Pressure Shadia n [Left Arm] 93 Pulse Oximetry 100 99 100 Oxygen Delivery Me thod Room Air Room Air Room Air Oxygen Flow Rate 0 Sepsis Recent Feve r Within 48 Hours No Sepsis New/Unexpla ined Change in Men otpher Status N/A Sepsis Action Take n by Nursing No Action Required 04/20/23 20:30 04/20/23 20:38 04/20/23 21:30 Temperature Temperature Source Pulse Rate 65 65 61 Pulse Rate [Apical ] Pulse Rhythm Pulse Rhythm [Apic al] Pulse Strength [Ap ical] Respiratory Rate 17 19 Respiratory Effort / Characteristics Respiratory Depth Blood Pressure 113/76 131/81 Blood Pressure [Le ft Arm] Blood Pressure Shadia n 88 97 Blood Pressure Shadia n [Left Arm] Pulse Oximetry 99 99 Oxygen Delivery Me thod Oxygen Flow Rate Sepsis Recent Feve r Within 48 Hours Sepsis New/Unexpla ined Change in Men topher Status Sepsis Action Take n by Nursing Physical Exam: Physical Exam GENERAL: She is oriented to person, place, and time. She appears well-developed and well-nourished. She does not appear distressed. HENT: Exam performed. -Head: Normocephalic and atraumatic. -Right Ear: External ear normal. No mastoid erythema -Left Ear: External ear normal. No mastoid erythema -Mouth/Throat: The oropharynx is clear and moist. No trismus in the jaw. No dental abscesses or uvula swelling. No oropharyngeal exudate or tonsillar abscesses. EYES: Conjunctivae and EOM are normal.Right eye exhibits no discharge. Left eye exhibits no discharge. No scleral icterus. NECK: Normal range of motion. Neck supple. No JVD present. No tracheal deviation and normal range of motion present. CV: Normal rate, regular rhythm, normal heart sounds and intact distal pulses. There is no peripheral edema. Palpable radial pulses bue. PULM/CHEST: Effort normal and breath sounds normal. No respiratory distress. No stridor. She has no wheezes. She has no rales. -Chest Wall: She exhibits no tenderness. ABD: The abdomen is soft. Bowel sounds are normal. She has no distension. No mass is present. There is tenderness to palpation of the epigastric area. There is no rebound, no guarding, no Jacobsen's sign and no tenderness at McBurney's point. Rovsig negative MUSC/SKEL: Normal range of motion. There is no peripheral edema, tenderness or deformity. NEURO: Motor and sensation grossly intact. SKIN: Skin is warm and dry. She is not diaphoretic. PSYCH: She has a normal mood and affect. Behavior is normal. Judgment and thought content normal. Course Course 2005: The patient was evaluated in room B12. A complete history and physical exam was performed Cardiac monitoring: An order was placed for continuous cardiac monitoring. The monitor shows a rate of 70 with sinus rhythm interpreted by nd 2200: Vital signs stable. Labs show an elevated lipase and CT shows acute pancreatitis. [facility]. Leonard's team will be notified. Administered Medications Sodium Chloride (Nss) 1,000 mls @ 125 mls/hr IV .Q8H SHARLA Stop: 05/20/23 22:14 Last Admin: 04/20/23 22:17 Dose: 125 mls/hr Documented By: MICHELLE Discontinued Medications Sodium Chloride (Nss) 1,000 mls @ 999 mls/hr IV .Q1H1M SHARLA Stop: 04/20/23 19:36 Last Infusion: 04/20/23 20:33 Dose: Infused Documented By: Admin: 04/20/23 19:00 Dose: 999 mls/hr Documented By: BRIEN Ioversol (Optiray 320 100ml) 89 ml IV ONCE ONE Stop: 04/20/23 21:01 Last Admin: 04/20/23 21:01 Dose: 89 ml Documented By: ZO Morphine Sulfate (Morphine Sulfate 4 Mg/Ml 1 Ml Carp\Vial) 4 mg IV NOW STA Stop: 04/20/23 22:02 Last Admin: 04/20/23 22:17 Dose: 4 mg Documented By: MICHELLE Ondansetron HCl (Ondansetron Inj 2 Mg/Ml 2 Ml Vial) 4 mg IV NOW STA Stop: 04/20/23 22:02 Last Admin: 04/20/23 22:17 Dose: 4 mg Documented By: MICHELLE Medical Decision Making Laboratory Data Attestation: I reviewed the patient's lab results. 04/20/23 18:58 04/20/23 18:58 Lab Results 04/20/23 04/20/23 Range/Units 18:58 20:30 WBC 12.09 H (4.8-10.8) K/ul RBC 5.15 (4.70-6.10) M/uL Hgb 14.9 (14.0-18.0) g/dl Hct 41.0 L (42.0-52.0) % MCV 79.6 L (80.0-100.0) fL MCH 28.9 (25.0-34.0) pg MCHC 36.3 H (32.0-36.0) g/dL RDW Std Deviation 36.6 (36.4-46.3) fL RDW Coeff of [place]ira 12.9 (11.5-14.5) % Plt Count 257 (130-400) K/uL MPV 11.8 (9.4-12.4) fL Immature Gran % (Auto) 0.6 % Neut % (Auto) 72.5 % Lymph % (Auto) 17.9 % [place] % (Auto) 6.7 % Eos % (Auto) 1.8 % Baso % (Auto) 0.5 % Neut # (Auto) 8.77 H (1.40-6.50) K/uL Lymph # (Auto) 2.16 (1.20-3.40) K/uL [place] # (Auto) 0.81 H (0.11-0.59) K/uL Eos # (Auto) 0.22 (0.00-0.50) K/uL Baso # (Auto) 0.06 (0.00-0.20) K/uL Immature Gran # (Auto) 0.07 (0.01-0.20) K/uL Sodium 139 (136-145) mmol/L Potassium 4.0 (3.5-5.1) mmol/L Chloride 106 (98-107) mmol/L Carbon Dioxide 25 (21-32) mmol/L Anion Gap 8 (3-11) BUN 16 (6-23) mg/dl Creatinine 1.21 (0.6-1.4) mg/dl Est Cr Clr Drug Dosing 112.1 ml/min Est GFR ( Amer) 93.2 ml/min Est GFR (Non-Af Amer) 80.4 ml/min BUN/Creatinine Ratio 13.2 (10-20) Glucose 106 H (70-99(Fasting)) mg/dl Calcium 9.5 (8.6-10.3) mg/dl Total Bilirubin 0.8 (0.2-1.0) mg/dl AST 19 (13-39) U/L ALT 19 (7-52) U/L Alkaline Phosphatase 78 (34-104) U/L Total Protein 7.3 (6.0-8.3) gm/dl Albumin 4.4 (3.4-5.0) gm/dl Globulin 2.9 (2.5-4.0) gm/dl Albumin/Globulin Ratio 1.5 (0.9-2) Lipase 4208 H (11-82) U/L Urine Color Dark Yellow Urine Appearance Cloudy A (Clear) Urine pH 6.0 (4.5-7.5) Ur Specific [place] 1.035 H (1.000-1.030) Urine Protein 2+ H (Negative) Urine Glucose (UA) Negative (Negative) Urine Ketones Trace H (Negative) Urine Blood Negative (Negative) Urine Nitrite Negative (Negative) Urine Bilirubin 1+ H (Negative) Urine Urobilinogen Negative (Negative) Ur Leukocyte Esterase Negative (Negative) Urine WBC (Auto) 5-10 H (0-5) /hpf Urine RBC (Auto) 0-4 (0-4) /hpf U Hyaline Cast (Auto) 5-10 H (0-5) /lpf U Epithel Cells (Auto) >30 H (0-5) /lpf Urine Bacteria (Auto) Negative (Negative) Ur Renal Epithelial Cell Not Reportable Granular Casts 1-5 H (0) /lpf Imaging Data Radiologist's Impression: Abdomen/Pelvis CT 04/20/23 18:35 Exam(s): CT ABDOMEN + PELVIS With Contrast IV Amt: 89 ml optiray 320 EXAM: CT Abdomen and Pelvis With Intravenous Contrast CLINICAL HISTORY: Reason for exam: mid/upper abd pain , hx of pancreatitis. TECHNIQUE: Axial computed tomography images of the abdomen and pelvis with intravenous contrast. CTDI is 27.1 mGy and DLP is 1403.68 mGy-cm. Automated exposure control was utilized for the study. A dose lowering technique was utilized adhering to the principles of ALARA. CONTRAST: Patient received 89 ml optiray 320 of IV contrast COMPARISON: No relevant prior studies available. FINDINGS: Lung bases: Unremarkable. No mass. No consolidation. ABDOMEN: Liver: Unremarkable. No mass. Gallbladder and bile ducts: Unremarkable. No calcified stones. No ductal dilation. Pancreas: Trace fat stranding about the pancreatic head, correlate for minimal pancreatitis. No ductal dilation. Spleen: Unremarkable. No splenomegaly. Adrenals: Unremarkable. No mass. Kidneys and ureters: Retroaortic LEFT renal vein. No hydronephrosis. Stomach and bowel: Unremarkable. No obstruction. No mucosal thickening. PELVIS: Appendix: Normal appendix. Bladder: Unremarkable. No mass. Reproductive: Unremarkable as visualized. ABDOMEN and PELVIS: Intraperitoneal space: Unremarkable. No free air. No significant fluid collection. Bones/joints: No acute fracture. No dislocation. Soft tissues: Unremarkable. Vasculature: See above. Lymph nodes: Mild increased number of mesenteric lymph nodes, which are not pathologically enlarged. IMPRESSION: 1. Normal appendix. 2. Mild increased number of mesenteric lymph nodes, which are not pathologically enlarged. 3. Trace fat stranding about the pancreatic head, correlate for minimal pancreatitis. Electronically signed by: Kendall Bowen MD 04/20/23 22:00 PM [facility] Narrative 2004: The patient was evaluated in room B12. A complete history and physical exam was performed Cardiac monitoring: An order was placed for continuous cardiac monitoring. The monitor shows a rate of 70 with sinus rhythm interpreted by nd 2200: Vital signs stable. Labs show an elevated lipase and CT shows acute pancreatitis. [facility] Dr. Leonard's team will be notified. Impression & Plan Pancreatitis Discharge Plan Visit Data Chief Complaint: Abdominal Pain Stated Complaint: PANCREATITUS, ABDOMINAL PAIN, NO APPETITE ED Provider: Cy Piedra Discharge Problem: Pancreatitis Patient Disposition: Admitted As Inpatient Forms Stand Alone Forms: [facility] Prescriptions Prescriptions: No Action No Known Home Medications Referrals Referrals: PCP,NO [Primary Care Provider] - Discharge Problem: Pancreatitis Qualifiers: Chronicity: acute Pancreatitis type: unspecified pancreatitis type Acute pancreatitis complication: unspecified Qualified Code(s): K85.90 - Acute pancreatitis without necrosis or infection, unspecified
[2023-04-20] MEDS: SODIUM CHLORIDE 0.9% 1,000 ML IV SCH ×2 (23:20→23:23)
[2023-04-21] MEDS ORDERED: ACETAMINOPHEN 325 MG TAB PO PRN (00:06)
[2023-04-21] MEDS ORDERED: ONDANSETRON INJ 2 MG/ML 2 ML VIAL IV PRN (00:06)
[2023-04-21] MEDS: NSS + 20MEQ KCL 20 MEQ/1,000 ML BAG IV SCH ×2 (02:13→09:40)
--- NOTE | 2023-04-21 07:30 | Hospitalist Progress Note ---
Date of Service April 21, 2023 Assessment & Plan (1) Pancreatitis: Plan: Pt is a 27 yo male with a past medical history of previous episode of pancreatitis who presents to the hospital on 04/20 for pancreatitis. Acute Pancreatitis - lipase 4208, today - CT scan of the abdomen and pelvis shows findings for minimal pancreatitis about the pancreatic head - Could consider MRCP if symptoms are slow to improve - continue IV fluids, zofran, pain meds - increased fluids today to 250 /hr LR - will give clear liquids today for diet this morning, then advance to regular tonight - will order MRCP and check lipids/HA1c VTE proph: pt very low risk so will defer for now Admission and Anticipated Discharge Date Admission Date: April 20, 2023 Supervising Physician Co-Signing Physician Notes I personally examined the patient and verified all villeda points of history and exam, discussed case, and agree with decision making with Dr Gannon feeling better pain better. Does not drink alcohol. Vitals noted, in general he is awake and alert pleasant no distress. HEENT normocephalic atraumatic mucous membranes moist. Abdomen is soft nondistended nontender no masses organomegaly. Labs and diagnostics reviewed. Acute recurrent pancreatitisfluids, pain control, nausea control advance diet, supportive care. MRCP given recurrent episodes (to be clear he does not show anything overtly consistent with gallstones, but he has had 2 episodes of pancreatitis and does not drink, current metabolic markers are pending, but previously he did not appear to be pancreatitis related to sugar or triglycerides). If all of work-up is negative, we will have him see GI as an ou tpatient with the question of Pawan rare causes of pancreatitis such as autoimmunealthough if the rest of the work-up is negative, probably postviral or viral mediated immune response would be the most likely. Hopefully home in the next day or so. Subjective Pt is a 27 yo male with a past medical history of previous episode of pancreatitis who presents to the hospital on 04/20 for pancreatitis. Pt states he had an episode 4 years ago out of the blue and that this time, he had been sick since last with diarrhea, then Tuesday/Tuesday of this week started to develop abdominal pain that he states felt just like when he had pancreatitis 4 years ago. He denies smoking or any alcohol use. No hx of diabetes in self or first degree relatives that he knows about but he states he does not regularly follow with a pcp. He states yesterday it was hard to even drink water, has his pain would worsen with any intake and he felt very nause ated. He states at this point he is getting what he thinks are hunger pains since he has now not really eaten in days. Otherwise, he states he is just tired. No further questions or complaints at this time. Review of Systems Review of Systems: Constitutional: denies fever, chills, Cardio: denies chest pain, palpitations Resp: denies shortness of breath, Physical Exam Physical Exam: General:Alert and oriented, no acute distress, laying in bed, appears fatigued HEENT: Normocephalic, moist oral mucosa, Cardio: Regular rate and rhythm, no murmur, Resp:Lungs clear to auscultation b/l, no wheezes or rhonchi, GI: Soft and nontender, nondistended, bowel sounds quiet but present Skin: Warm, pink, dry, Psych: Mood-affect congruence. Results & Data Results & Data Vital Signs (Past 12 Hours) Vital Signs Temp Pulse Pulse Pulse Resp BP BP 04/21/23 00:42 36.8 C 76 14 134/72 04/21/23 00:10 36.8 C 76 14 134/72 04/20/23 23:30 71 22 122/79 04/20/23 23:00 78 23 118/81 04/20/23 22:30 75 18 136/81 04/20/23 22:00 61 20 135/78 04/20/23 21:30 61 19 131/81 04/20/23 20:38 65 04/20/23 20:30 65 17 113/76 04/20/23 20:15 63 18 04/20/23 20:15 65 18 127/76 Pulse Ox O2 Del Method O2 Flow Rate 04/21/23 00:42 98 Room Air 04/21/23 00:10 98 Room Air 04/20/23 23:30 96 04/20/23 23:00 98 04/20/23 22:30 98 04/20/23 22:00 99 04/20/23 21:30 99 04/20/23 20:38 04/20/23 20:30 99 04/20/23 20:15 100 Room Air 0 04/20/23 20:15 99 Room Air Resident Activity Tracking Resident Involvement: Resident Care Provided Care Provided: Adult Hospital Medicine (1) Pancreatitis Acute pancreatitis complication: unspecified Chronicity: acute Pancreatitis type: unspecified pancreatitis type Qualified Code(s): K85.90 - Acute pancreatitis without necrosis or infection, unspecified
[2023-04-21 07:44] LABS: Basophils # (auto) 0.04 K/uL (0.00-0.20); Basophils % (auto) 0.4 %; Eosinophils # (auto) 0.18 K/uL (0.00-0.50); Hematocrit (blood only) 38.3 % (42.0-52.0); Hemoglobin 13.2 g/dl (14.0-18.0); Immature Granulocytes # (auto) 0.05 K/uL (0.01-0.20); Immature Granulocytes % (auto) 0.6 %; Lymphocytes # (auto) 1.84 K/uL (1.20-3.40); Lymphocytes % (auto) 20.7 %; Mean Corpuscular Hemoglobin 28.5 pg (25.0-34.0); Mean Corpuscular Hgb Conc 34.5 g/dL (32.0-36.0); Mean Corpuscular Volume 82.7 fL (80.0-100.0); Mean Platelet Volume 11.8 fL (9.4-12.4); Monocytes # (auto) 0.55 K/uL (0.11-0.59); Monocytes % (auto) 6.2 %; Neutrophils # (auto) 6.25 K/uL (1.40-6.50); Neutrophils % (auto) 70.1 %; Platelet Count 185 K/uL (130-400); RDW Coefficient of Variation 12.9 % (11.5-14.5); RDW Standard Deviation 38.7 fL (36.4-46.3); Red Blood Count 4.63 M/uL (4.70-6.10); White Blood Count 8.91 K/ul (4.8-10.8)
[2023-04-21 08:29] LABS: BUN Creatinine Ratio 9.8 (10-20); Calcium 8.3 mg/dl (8.6-10.3); Est GFR (African American) 114.6 ml/min; Est GFR (Non-African American) 98.9 ml/min; Potassium 4.1 mmol/L (3.5-5.1)
[2023-04-21 08:59] LABS: Albumin Globulin Ratio 1.8 (0.9-2); Albumin Level 3.7 gm/dl (3.4-5.0); Globulin 2.1 gm/dl (2.5-4.0); Magnesium 1.9 mg/dl (1.7-2.4); Total Protein 5.8 gm/dl (6.0-8.3)
[2023-04-21] MEDS: PANTOprazole 40 MG in SYRINGE 0 ML IV SCH (10:30)
[2023-04-21] MEDS: LACTATED RINGER'S 1,000 ML IV SCH ×3 (12:36→20:11)
[2023-04-21 13:18] LABS: Chol HDL Ratio 4.9 (0-5)
[2023-04-21 13:35] LABS: Estimated Average Glucose 100 mg/dl; Hemoglobin A1C 5.1 % (4.5-5.6)
--- NOTE | 2023-04-21 17:55 | Billing Data ---
Date of Service April 21, 2023 Coding Level of Care Code 10918 SUB INP/OBS CARE MIN
--- NOTE | 2023-04-21 20:17 | Magnetic Resonance Report ---
MRCP CLINICAL HISTORY: Recurrent pancreatitis. COMPARISON STUDY: Abdominal CT dated 04/20/2023. TECHNIQUE: Abdominal MRCP was performed utilizing various T2-weighted sequences in the axial and francis nal planes. IV contrast was not administered for this examination. Diffusion-weighted imaging was uti lized. 3-D reformats are created and assessed. FINDINGS: The gallbladder is normal in appearance. No gallstones are identified. There is no intra or extrahepa tic biliary ductal dilatation. The common bile duct is normal in caliber and measures up to 3 mm in d iameter. No intraluminal filling defects are seen to suggest choledocholithiasis. The pancreatic duct is normal in caliber. There is likely variant anatomy of the pancreatic duct without clear evidence of divisum. There are prominent branches of the pancreatic duct in the region of the pancreatic head and uncinate. These all appear to drain via the main pancreatic duct at the ampulla. The pancreas appears mildly edematous with minimal surrounding infiltration. This is consistent with the reported history of pancreatitis. No peripancreatic fluid collection is identified. The unenhance d liver, spleen, adrenal glands, and kidneys are grossly normal. The abdominal aorta is normal in cou rse and caliber. A retroaortic left renal vein is incidentally noted. There is no abdominal ascites. There are trace pleural effusions seen at the lung bases. The bony structures appear intact. IMPRESSION: 1. Normal MRCP. 2. There is evidence of mild acute pancreatitis. 3. There is likely variant anatomy of the pancreatic duct without clear evidence of divisum. 4. Trace pleural effusions. Dictated: 04/21/2023 7:17 PM Transcribed: 04/21/2023 8:12 PM [place]ilar [id number] [place] [id number] Electronically signed by: Darin Richard M.D. 04/21/2023 8:15 PM
[2023-04-22] MEDS: LACTATED RINGER'S 1,000 ML IV SCH ×2 (02:38→12:04)
[2023-04-22 07:51] LABS: Basophils # (auto) 0.06 K/uL (0.00-0.20); Basophils % (auto) 0.6 %; Eosinophils % (auto) 1.9 %; Hematocrit (blood only) 40.7 % (42.0-52.0); Hemoglobin 14.1 g/dl (14.0-18.0); Immature Granulocytes # (auto) 0.04 K/uL (0.01-0.20); Immature Granulocytes % (auto) 0.4 %; Lymphocytes # (auto) 1.75 K/uL (1.20-3.40); Lymphocytes % (auto) 16.9 %; Mean Corpuscular Hemoglobin 28.7 pg (25.0-34.0); Mean Corpuscular Hgb Conc 34.6 g/dL (32.0-36.0); Mean Corpuscular Volume 82.7 fL (80.0-100.0); Mean Platelet Volume 11.5 fL (9.4-12.4); Monocytes # (auto) 0.65 K/uL (0.11-0.59); Monocytes % (auto) 6.3 %; Neutrophils # (auto) 7.66 K/uL (1.40-6.50); Neutrophils % (auto) 73.9 %; Platelet Count 223 K/uL (130-400); RDW Standard Deviation 38.9 fL (36.4-46.3); Red Blood Count 4.92 M/uL (4.70-6.10); White Blood Count 10.36 K/ul (4.8-10.8)
[2023-04-22 08:06] LABS: Albumin Globulin Ratio 1.8 (0.9-2); Albumin Level 4.2 gm/dl (3.4-5.0); BUN Creatinine Ratio 8.9 (10-20); Bilirubin,Total 0.8 mg/dl (0.2-1.0); Calcium 9.5 mg/dl (8.6-10.3); Creatinine Clr Calc Pharmacy 123.8 ml/min; Est GFR (African American) 102.3 ml/min; Est GFR (Non-African American) 88.3 ml/min; Globulin 2.4 gm/dl (2.5-4.0); Total Protein 6.6 gm/dl (6.0-8.3)
--- NOTE | 2023-04-22 10:14 | Discharge Summary ---
Date of Service April 22, 2023 Admission HPI Per Admitting Provider The patient is a 27-year-old male with a past medical history of pancreatitis requiring hospitalization from 10/28-10/30/2018. He presents to the emergency department with 3 days of diarrhea, and then abdominal pain with decreased oral intake to liquids and solids, reminiscent of his first episode of pancreatitis. He reports that his girlfriend had the same 3 days of diarrhea. He cannot at this moment determine if there has been any questionable food intake, but he will discuss with his girlfriend. He reports that even with swallowing water he gets abdominal discomfort. Admission Exam Per Admitting Provider The patient is awake, alert and oriented 3, well developed and well nourished, normocephalic and atraumatic, lying in bed and in no acute distress. HEENT--PERRL, EOMI, mucous membranes and oropharynx mildly dry. Neck--supple. No JVD. No bruits. Thyroid normal, trachea midline, no adenopathy. Heart--normal S1 and S2. No murmurs, rubs or gallops. Lungs--clear bilaterally, no respiratory distress, no accessory muscle use. Abdomen--normal bowel sounds and soft. Mild epigastric and generalized abdominal discomfort Extremities--no cyanosis or clubbing. No edema. Dermatologic--normal skin turgor, normal color, no abnormal lymph nodes, no rash. Neurologic--cranial nerves II through XII grossly intact. Rheumatologic--normal range of motion. Psychiatric--normal affect. Principal Diagnosis Acute pancreatitis Discharge Exam General:Alert and oriented, no acute distress, HEENT: Normocephalic, moist oral mucosa, Cardio: Regular rate and rhythm, no murmur, Resp:Lungs clear to auscultation b/l, no wheezes or rhonchi, GI: Soft and nontender, nondistended, bowel sounds active Skin: Warm, pink, dry, Psych: Mood-affect congruence. Discharge Data Allergies Allergy/AdvReac Type Severity Reaction Status Date / Time EYZOLE Allergy Intermediate HIVES--PT Uncoded 04/20/23 21:26 UNSURE OF SPELLING, HAPPENED A CHILD. Consultations 04/20/23 22:02 ED Decision to Admit Stat Ordered Studies 04/20/23 18:35 CT abd pelvis IV con only Stat 04/21/23 12:29 MR MRCP Routine Hospital Course (1) Pancreatitis: Pt is a 27 yo male with a past medical history of previous episode of pancreatitis who presents to the hospital on 04/20 for pancreatitis. Pt continues to do well, tolerating regular diet without issues. At this point, stable for discharge with GI f/u. Acute Pancreatitis - lipase 4208, has been downtrending - CT scan of the abdomen and pelvis shows findings for minimal pancreatitis about the pancreatic head - continue IV fluids, zofran, pain meds - had given LR at 250 /hr, decreased last night to 125/hr - tolerating regular diet - lipids unremarkable, and HA1c 5.1 - MRCP showed likely variant anatomy of the pancreatic duct without clear evidence of divisum - unclear why this pt has had 2 episodes of acute pancreatitis with no alcohol consumption, wnl lipids, and no clear biliary stones/dysfunction, but may be anatomic mediated per MRCP, needs further workup in an outpatient setting Total Time Total Time Spent Total Time Spent (In Minutes): <30 Discharge Plan Discharge Items Patient Disposition: Home - Self-Care Reason For Visit: PANCREATITIS Discharge Diagnosis: Acute pancreatitis Activity: Per Instructions section Non-emergency contact: Primary Care Provider Call non-emergency contact if: you have any medication questions and your symptoms worsen Follow-up/Referrals: PCP,NO [Primary Care Provider] - Diet: Regular Addtl Attending Provider Instructions: You were admitted for acute pancreatitis. We treated you with gradual return to diet and IV fluids. You have tolerated diet well and your symptoms have improved, so we feel it is safe for you to go home at this time. Medications: Your medication list has been reviewed and reconciled upon discharge to ensure accuracy and continuity of care. An updated list of all your medications is included with your hospital discharge paperwork. Please review this list closely, and make note of any changes. If you have any issues filling these prescriptions, please call [phone] and ask to leave a message for Dr. Gannon. Take your medications as instructed; do not skip a dose of your medicines. Make sure all of your doctors know every medicine you are taking (including [id number] medicines, vitamins, and supplements). Call your primary care provider before taking any new medicines (including over- the-counter medicines, vitamins, and supplements), because some of these may interact with your current medications, or may make your symptoms worse. Tell your primary care provider if you cannot afford your medications. Activity: You can do normal everyday activities as your body allows. Take rest breaks if you feel tired. Do not overexert. Stop activity if you have pain, shortness of breath or feel dizzy. Follow-up appointments: Make an appointment with your primary care physician within one week of discharge. A copy of this summary will be sent to them. Every time you see your primary care physician, or any other doctor, bring your medication list, and a list of questions. You should expect a call from [facility] to make an appointment with the ammonia distiller Dr. Ginette Dao MD. If you do not get a call by Tuesday, please call [phone] to schedule an appointment. CONTACT YOUR PRIMARY CARE PROVIDER if you experience any of the following: Shortness of breath or difficulty breathing Swelling of your feet, ankles, hands or abdomen Feeling tired with normal activity or experiencing dizziness or fainting Difficulty following your treatment plan, or difficulty taking medications CALL 911 OR GO TO THE EMERGENCY DEPARTMENT if you experience any of the following: Severe abdominal pain or nausea/vomiting Severe chest pain, or chest pain that radiates (moves) to your jaw or arm Sudden, severe shortness of breath or difficulty breathing Thank you for allowing us to participate in your care. Pending Studies at Discharge: No Stand-Alone Forms: My [facility] [employer], Work/School Release Medications and DC Order Prescriptions: No Action No Known Home Medications Discharge Orders: Discharge Order (Routine); Ordered 04/22/23 Ordered By: Kristina Jung/Other Patient Handouts: Pancreatitis Acute Dc Admission Data Admit Date/Time: 04/20/23 22:50 Attending Provider: Bob Park Admit Provider: Gordon Muhammad Primary Care Provider: PCP,NO Other Providers: Gordon Muhammad Other Interventions: Discharge Summary Assessment (RN) Last Done: 04/22/23 11:46 Supervising Physician Co-Signing Physician Notes I personally examined the patient and verified all villeda points of history and exam, discussed case, and agree with decision making with Dr Gannon feels much better overall, feels up to going home. Vitals noted, in general he is awake and alert pleasant no distress. HEENT normocephalic atraumatic mucous membranes moist. skin without rashes pallor or icterus. Neuro without focal deficits. Acute recurrent pancreatitisfluids, pain control, nausea control advance diet, supportive care. MRCP given recurrent episodes shows a possible anatomic abnormality that could possibly explain his recurrent pancreatitis episodesdiscussed with ERCP/biliary GIthey agree that this warrants them seeing him, and we will get it set up as an outpatient. Resident Activity Tracking Resident Involvement: Resident Care Provided Care Provided: Adult Hospital Medicine
[2023-04-22] MEDS: PANTOprazole 40 MG in SYRINGE 0 ML IV SCH (12:04)
--- NOTE | 2023-04-22 19:51 | Billing Data ---
Date of Service April 22, 2023 Coding Level of Care Code 24961 IN/OBS DISCH 30 MIN/LESS
== END 2023-04-22 13:05 | disposition home or self-care (01) | DRG 440 ==
LOC: ED 18:14 → INTOOBSV 22:50 → 3N 22:50 → SUATTDRO 22:50 → 3N 23:43